=== PATIENT | female | born 1955 | race Caucasian/White ===

== ENCOUNTER 2018-06-25 13:59 | Emergency (ER) | payer MEDICARE, MEDICAID ==
[~2018-06-25] VITALS: Ht 171.4 cm; Wt 102.4 kg
[~2018-06-25 13:59] MED LIST: BACL10TA PO; DOCU-299 PO; FENT1PAT10 TP; FER325T PO; FLUO20CA39 PO; LACT10SO74 PO; LORA10TA7 PO; OMEP20CA10 PO; PALI1.5T PO; PROP20TA6 PO; RIFA550T PO; ROPI0.5T2 PO; ROPI1TAB4 PO; SOLI5TAB2 PO; SPIR50TA PO; TOP25T PO; TRAZ-218 PO
[2018-06-25] MEDS ORDERED: CefTRIAXone/D5W-Rocephin 1gm 50 ML IV ONE (15:10)
[2018-06-25 15:35] LABS: ALANINE AMINOTRANSFERASE 25 U/L (12-78); ALBUMIN 3.1 G/DL (3.4-5.0); ALBUMIN/GLOBULIN RATIO 1.2 (1.1-1.5); ALKALINE PHOSPHATASE 76 IU/L (46-116); ANION GAP 13 (8-16); ASPARTATE AMINO TRANSFERASE 32 U/L (10-37); BLOOD UREA NITROGEN 13 MG/DL (7-18); BUN/CREATININE RATIO 12.5 (6.6-38.0); CHLORIDE 107 MMOL/L (99-107); CREATININE 1.04 MG/DL (0.40-0.90); GLUCOSE 93 MG/DL (70-104); POTASSIUM 3.2 MMOL/L (3.5-5.1); SODIUM 143 MMOL/L (135-145); TOTAL CARBON DIOXIDE 22.6 MMOL/L (24-32); TOTAL PROTEIN 5.7 G/DL (6.4-8.2); eGFR 53 ML/MIN
[2018-06-25 15:37] LABS: BASOPHILS % (AUTO) 0.3 % (0-1); EOSINOPHILS # (AUTO) 0.2 X10'3 (0-0.9); EOSINOPHILS % (AUTO) 6.8 % (0-6); HEMOGLOBIN 10.1 g/dl (12.0-16.0); LYMPHOCYTES # (AUTO) 0.7 X10'3 (1.1-4.8); LYMPHOCYTES % (AUTO) 23.3 % (21-51); MEAN CORPUSCULAR HEMOGLOBIN 30.1 PG (27.0-31.0); MEAN CORPUSCULAR HGB CONC 33.6 % (33.0-36.5); MEAN CORPUSCULAR VOLUME 89.4 FL (78-98); MEAN PLATELET VOLUME 7.4 FL (7.4-10.4); MONOCYTES # (AUTO) 0.3 X10'3 (0-0.9); MONOCYTES % (AUTO) 8.3 % (2-12); NEUTROPHILS # (AUTO) 1.9 X10'3 (1.8-7.7); NEUTROPHILS % (AUTO) 61.3 % (42-75); RED BLOOD COUNT 3.36 X10'6 (4.20-5.60); RED CELL DISTRIBUTION WIDTH 15.7 % (11.5-14.5); WHITE BLOOD COUNT 3.2 X10'3 (4.5-11.0)
[2018-06-25] MEDS ORDERED: potassium Cl 20 mEq SR tablet PO STA (15:42)
[2018-06-25 15:45] LABS: PLATELET COUNT 43 X10'3 (140-440)
[2018-06-25] MEDS ORDERED: SULF1TAB49 PO (16:15)
[2018-06-25] MEDS ORDERED: CEPH500C5 PO (16:15)
[2018-06-25 16:31] VITALS: BP 110/53
== END 2018-06-25 16:35 | disposition home or self-care (01) ==
LOC: ER 14:00
DX: L03.115 Cellulitis of right lower limb (principal); E66.01 Morbid (severe) obesity due to excess calories; E11.9 Type 2 diabetes mellitus without complications; G89.29 Other chronic pain; Z90.49 Acquired absence of other specified parts of digestive tract; Z88.0 Allergy status to penicillin; Z79.899 Other long term (current) drug therapy
CPT/HCPCS: 36415; 73590; 80053; 85025; 93971; 96365; 99285; J0696

== ENCOUNTER 2021-08-12 09:11 | Inpatient (IN) | payer MEDICARE, MEDICAID ==
[~2021-08-12] VITALS: Ht 160 cm; Wt 56.7 kg
[~2021-08-12 09:11] MED LIST changes: -DOCU-299 PO; +DOCU-345 PO; -OMEP20CA10 PO; +OMEP20CA15 PO; -ROPI0.5T2 PO; +ROPI0.5T4 PO; -ROPI1TAB4 PO; +ROPI1TAB6 PO; -TRAZ-218 PO; +TRAZ-251 PO
--- NOTE | 2021-08-12 09:56 | NUR ---
spoke to nisa from [employer] office for pacemaker interrogation .they will call us with the report.
[2021-08-12] MEDS ORDERED: normal saline 1000ml 1,000 ML IV ONE (10:00)
[2021-08-12 10:03] LABS: BASOPHILS % (AUTO) 0.4 % (0-1); EOSINOPHILS # (AUTO) 0.2 X10'3 (0-0.9); EOSINOPHILS % (AUTO) 4.4 % (0-6); HEMATOCRIT 43.5 % (35.0-45.0); LYMPHOCYTES % (AUTO) 19.5 % (21-51); MEAN CORPUSCULAR HEMOGLOBIN 26.3 PG (27.0-31.0); MEAN CORPUSCULAR HGB CONC 32.2 g/dL (33.0-36.5); MEAN CORPUSCULAR VOLUME 81.6 FL (78-98); MEAN PLATELET VOLUME 6.8 FL (7.4-10.4); MONOCYTES # (AUTO) 0.3 X10'3 (0-0.9); NEUTROPHILS # (AUTO) 3.7 X10'3 (1.8-7.7); NEUTROPHILS % (AUTO) 69.7 % (42-75); PLATELET COUNT 71 X10'3 (140-440); RED BLOOD COUNT 5.33 X10'6 (4.20-5.60); WHITE BLOOD COUNT 5.3 X10'3 (4.5-11.0)
[2021-08-12 10:04] LABS: D-DIMER 2.27 MG/L FEU (0-0.50)
[2021-08-12] MEDS ORDERED: magnesium 2GM in 50ml NS 50 ML IV ONE (10:05)
[2021-08-12 10:07] LABS: ALANINE AMINOTRANSFERASE 30 U/L (12-78); ALBUMIN 2.8 G/DL (3.4-5.0); ALBUMIN/GLOBULIN RATIO 0.8 (1.1-1.5); ALKALINE PHOSPHATASE 131 IU/L (46-116); ANION GAP 14 (8-16); ASPARTATE AMINO TRANSFERASE 40 U/L (10-37); BILIRUBIN,TOTAL 1.2 MG/DL (0.1-1.0); BLOOD UREA NITROGEN 31 MG/DL (7-18); BUN/CREATININE RATIO 27.4 (6.6-38.0); CALCIUM 8.3 MG/DL (8.5-10.1); CHLORIDE 107 MMOL/L (99-107); CREATININE 1.13 MG/DL (0.40-0.90); GLUCOSE 150 MG/DL (70-104); SODIUM 143 MMOL/L (135-145); TOTAL CARBON DIOXIDE 22.2 MMOL/L (24-32); TOTAL PROTEIN 6.2 G/DL (6.4-8.2); eGFR 48 ML/MIN
[2021-08-12 10:15] LABS: MAGNESIUM 2.2 MG/DL (1.5-2.4)
[2021-08-12 10:25] LABS: ANISOCYTOSIS 2+; ELLIPTOCYTES FEW; HYPOCHROMASIA 1+; PLATELET ESTIMATE DECREASED; POLYCHROMASIA FEW; TEAR DROP CELLS 1+
[2021-08-12 10:27] LABS: PHOSPHORUS 3.5 MG/DL (2.3-4.5)
[2021-08-12] MEDS ORDERED: iohexol 350MG/ML 100ml bottle IV ONE (10:52)
--- NOTE | 2021-08-12 10:57 | NUR ---
to ct scan.
[2021-08-12] MEDS ORDERED: OMEP-50 PO (13:15)
[2021-08-12] MEDS ORDERED: BUPR2TAB11 SL (13:15)
[2021-08-12] MEDS ORDERED: FEXO-236 PO (13:15)
[2021-08-12] MEDS ORDERED: FURO40TA4 PO (13:15)
[2021-08-12] MEDS ORDERED: GUAN1TAB PO (13:15)
[2021-08-12] MEDS ORDERED: MIRT-87 PO (13:15)
[2021-08-12] MEDS ORDERED: NYST1000 PO (13:15)
[2021-08-12] MEDS ORDERED: BACL10TA2 PO (13:15)
[2021-08-12] MEDS ORDERED: SPIR25TA5 PO (13:15)
[2021-08-12] MEDS ORDERED: ALBU18HF2 IH (13:15)
[2021-08-12] MEDS ORDERED: MIRA25TA PO (13:15)
[2021-08-12] MEDS ORDERED: TOPI50TA24 PO (13:15)
[2021-08-12] MEDS ORDERED: ESTR42.510 VG (13:15)
[2021-08-12] MEDS ORDERED: LACT10SO3 PO (13:16)
[2021-08-12] MEDS ORDERED: albuterol 2.5 MG/3 ML nebule NEB PRN (14:55)
[2021-08-12] MEDS ORDERED: magnesium 4gm in 100ml NS 100 ML IV PRN (15:00)
[2021-08-12] MEDS ORDERED: morphine 2 MG/ML inj. syringe IV PRN ×2 (15:00)
[2021-08-12] MEDS ORDERED: potassium CL 10mEq/100ml bag 100 ML IV PRN (15:00)
[2021-08-12] MEDS ORDERED: magnesium hydroxide 30ml (MOM) UD suspension PO PRN (15:00)
[2021-08-12] MEDS ORDERED: HYDROcodone/acetaminophen 5mg/325mg tablet PO PRN (15:00)
[2021-08-12] MEDS ORDERED: acetaminophen 325mg tablet PO PRN ×2 (15:00)
[2021-08-12] MEDS ORDERED: magnesium Cl slow-release 64mg tablet PO PRN (15:00)
[2021-08-12] MEDS ORDERED: mag hydrox/Alum hydrox/simeth 30ml oral suspension PO PRN (15:00)
[2021-08-12] MEDS ORDERED: potassium Cl 20 mEq SR tablet PO PRN (15:00)
[2021-08-12] MEDS ORDERED: ondansetron/PF 4mg/2ml inj IV PRN (15:00)
[2021-08-12] MEDS ORDERED: magnesium 2GM in 50ml NS 50 ML IV PRN (15:00)
[2021-08-12] MEDS ORDERED: metoprolol tartrate 1mg/ml inj IV PRN (15:10)
[2021-08-12] MEDS ORDERED: regadenoson 0.4mg/5ml syringe IV ONE (15:10)
[2021-08-12] MEDS ORDERED: nitroGLYCERIN 0.4mg SUBLingual tab SL PRN (15:10)
[2021-08-12] MEDS ORDERED: aminophylline 250mg/10ml inj. IV PRN (15:10)
--- NOTE | 2021-08-12 15:24 | NUR ---
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
[2021-08-12] MEDS: furosemide 40mg/4ml inj IV SCH ×2 (15:42→19:39)
--- NOTE | 2021-08-12 18:12 | NUR ---
called the pharmacist to change the lexiscan med change to tomm as pt is going tomm for stress test.
[2021-08-12] MEDS: buprenorphine/naloxone 2-0.5mg sublingual tablet SL SCH (19:39)
[2021-08-12] MEDS: guanFACINE 1 mg tablet PO SCH (19:39)
[2021-08-12] MEDS: docusate sod 100mg capsule PO SCH (19:39)
[2021-08-12] MEDS: K and/or MAG REPLACEMENT MC SCH (20:24)
[2021-08-12] MEDS: rifaximin 550mg tablet PO SCH (20:36)
[2021-08-12] MEDS: lactulose 20gm/30ml cup PO SCH (21:22)
[2021-08-12 22:00] VITALS: BP 102/50
[2021-08-13] VITALS (10 sets, daily range): BP systolic 86–121; BP diastolic 45–67
[2021-08-13] MEDS: baclofen 10mg tablet PO SCH ×2 (00:58→20:53)
[2021-08-13] MEDS: ROPINIRole 1mg tablet PO SCH ×2 (00:58→20:51)
[2021-08-13] MEDS: mirtazapine 15mg tablet PO SCH ×2 (00:59→20:52)
[2021-08-13] MEDS ORDERED: LORazepam 2 mg/ml vial IV ONE (04:55)
--- NOTE | 2021-08-13 06:42 | NUR ---
Patient in room PCU 3012. I have received report from Olya DENNIS and had the opportunity to ask questions and assume patient care.
[2021-08-13 06:50] LABS: BASOPHILS % (AUTO) 0.2 % (0-1); EOSINOPHILS # (AUTO) 0.1 X10'3 (0-0.9); EOSINOPHILS % (AUTO) 4.6 % (0-6); HEMOGLOBIN 11.6 g/dl (12.0-16.0); LYMPHOCYTES # (AUTO) 0.7 X10'3 (1.1-4.8); MEAN CORPUSCULAR HEMOGLOBIN 26.5 PG (27.0-31.0); MEAN CORPUSCULAR VOLUME 80.1 FL (78-98); MONOCYTES # (AUTO) 0.2 X10'3 (0-0.9); MONOCYTES % (AUTO) 7.8 % (2-12); NEUTROPHILS # (AUTO) 1.2 X10'3 (1.8-7.7); NEUTROPHILS % (AUTO) 56.4 % (42-75); RED BLOOD COUNT 4.38 X10'6 (4.20-5.60); RED CELL DISTRIBUTION WIDTH 19.5 % (11.5-14.5); WHITE BLOOD COUNT 2.2 X10'3 (4.5-11.0)
[2021-08-13 06:54] LABS: ALBUMIN 2.4 G/DL (3.4-5.0); ANION GAP 9 (8-16); BLOOD UREA NITROGEN 24 MG/DL (7-18); BUN/CREATININE RATIO 24.7 (6.6-38.0); CHLORIDE 110 MMOL/L (99-107); CREATININE 0.97 MG/DL (0.40-0.90); GLUCOSE 84 MG/DL (70-104); POTASSIUM 3.2 MMOL/L (3.5-5.1); SODIUM 145 MMOL/L (135-145); TOTAL CARBON DIOXIDE 26.2 MMOL/L (24-32); eGFR 57 ML/MIN
[2021-08-13 07:35] LABS: PLATELET COUNT 45 X10'3 (140-440)
--- NOTE | 2021-08-13 07:50 | NUR ---
Critical Platelet MESSAGE: Dr. Velez Bed 12B Ivis Orquidea had a critical platelet level of 45 previously 71; [facility]
[2021-08-13] MEDS: enoxaparin 40mg/0.4ml syringe SUBCUT SCH (08:00)
[2021-08-13] MEDS: K and/or MAG REPLACEMENT MC SCH ×2 (08:00→20:00)
[2021-08-13] MEDS ORDERED: FLUoxetine 20mg capsule PO SCH (08:00)
[2021-08-13] MEDS ORDERED: baclofen 10mg tablet PO SCH (08:00)
[2021-08-13] MEDS ORDERED: ROPINIRole 1mg tablet PO SCH (08:00)
[2021-08-13] MEDS ORDERED: FLU VACC QS2021-22(6MOS UP)/PF 60 MCG/0.5 ML SYRINGE IM ONE (08:00)
[2021-08-13] MEDS ORDERED: regadenoson 0.4mg/5ml syringe IV ONE (08:00)
[2021-08-13] MEDS ORDERED: mirtazapine 15mg tablet PO SCH (08:00)
--- NOTE | 2021-08-13 08:00 | NUR ---
Lovenox hold Per Dr. Velez hold lovenox d/t low platelet level. [facility]
[2021-08-13] MEDS: furosemide 40mg/4ml inj IV SCH ×2 (08:47→20:52)
[2021-08-13] MEDS: pantoprazole 40mg Tablet.DR PO SCH (08:49)
[2021-08-13] MEDS: loratadine 10mg tablet PO SCH (08:49)
[2021-08-13] MEDS: lactulose 20gm/30ml cup PO SCH ×3 (08:51→20:51)
[2021-08-13] MEDS: FLUoxetine 20mg capsule PO SCH (08:51)
[2021-08-13] MEDS: spironolactone 25 MG tablet PO SCH (08:52)
[2021-08-13] MEDS: docusate sod 100mg capsule PO SCH ×2 (08:52→19:59)
[2021-08-13] MEDS: topiramate 25mg tablet PO SCH (08:53)
[2021-08-13] MEDS: buprenorphine/naloxone 2-0.5mg sublingual tablet SL SCH ×2 (08:54→20:52)
[2021-08-13] MEDS: nystatin 500,000 unit/5ML UD oral suspension PO SCH (09:01)
[2021-08-13] MEDS: guanFACINE 1 mg tablet PO SCH ×2 (09:01→20:52)
--- NOTE | 2021-08-13 09:51 | NUR ---
Pacemaker Rep Spoke with pacemaker novelties sales representative from [employer] per rep Chantal they will have a pacemaker novelties sales representative out to see her as soon as the can to interrogate her pacemaker [facility]
[2021-08-13 10:53] LABS: ANISOCYTOSIS 2+; PLATELET ESTIMATE DECREASED; TOTAL CELLS COUNTED 100
[2021-08-13 10:54] LABS: ELLIPTOCYTES FEW; SCHISTOCYTES FEW
--- NOTE | 2021-08-13 12:30 | NUR ---
Per. [employer] Gaye a pharmacy sales representative will be out tomorrow morning to interrogate pacemaker. [facility]
--- NOTE | 2021-08-13 12:39 | NUR ---
PAGER ID: [phone] MESSAGE: [email or web address] ON [email or web address], [facility] REPORT IS AVAILABLE FOR 3012B, THX
[2021-08-13] MEDS: rifaximin 550mg tablet PO SCH ×2 (12:42→21:06)
[2021-08-13] MEDS: mirabegron 25mg ER tablet PO SCH (12:43)
[2021-08-13] MEDS: potassium Cl 20 mEq SR tablet PO PRN ×3 (12:51→21:06)
[2021-08-13] MEDS: HYDROcodone/acetaminophen 10/325mg tab PO PRN ×2 (12:51→17:21)
--- NOTE | 2021-08-13 18:45 | NUR ---
Problems reprioritized. Patient report given Olya DENNIS, questions answered & plan of care reviewed with Olya DENNIS.
[2021-08-14 02:00] VITALS: BP 99/46
[2021-08-14 06:34] LABS: BASOPHILS % (AUTO) 0.4 % (0-1); EOSINOPHILS # (AUTO) 0.1 X10'3 (0-0.9); EOSINOPHILS % (AUTO) 4.7 % (0-6); HEMATOCRIT 37.5 % (35.0-45.0); HEMOGLOBIN 12.4 g/dl (12.0-16.0); LYMPHOCYTES # (AUTO) 0.7 X10'3 (1.1-4.8); LYMPHOCYTES % (AUTO) 32.5 % (21-51); MEAN CORPUSCULAR HEMOGLOBIN 26.5 PG (27.0-31.0); MEAN CORPUSCULAR VOLUME 80.3 FL (78-98); MONOCYTES # (AUTO) 0.2 X10'3 (0-0.9); MONOCYTES % (AUTO) 7.8 % (2-12); NEUTROPHILS # (AUTO) 1.2 X10'3 (1.8-7.7); NEUTROPHILS % (AUTO) 54.6 % (42-75); RED BLOOD COUNT 4.67 X10'6 (4.20-5.60); RED CELL DISTRIBUTION WIDTH 19.3 % (11.5-14.5); WHITE BLOOD COUNT 2.3 X10'3 (4.5-11.0)
[2021-08-14 06:51] LABS: ALBUMIN 2.4 G/DL (3.4-5.0); ANION GAP 6 (8-16); BLOOD UREA NITROGEN 24 MG/DL (7-18); BUN/CREATININE RATIO 21.6 (6.6-38.0); CALCIUM 8.1 MG/DL (8.5-10.1); CHLORIDE 111 MMOL/L (99-107); CREATININE 1.11 MG/DL (0.40-0.90); GLUCOSE 91 MG/DL (70-104); POTASSIUM 4.4 MMOL/L (3.5-5.1); SODIUM 144 MMOL/L (135-145); TOTAL CARBON DIOXIDE 26.6 MMOL/L (24-32); eGFR 49 ML/MIN
--- NOTE | 2021-08-14 07:09 | NUR ---
Patient in room PCU 3012. I have received report from Anila and had the opportunity to ask questions and assume patient care.
--- NOTE | 2021-08-14 07:10 | NUR ---
PAGER ID: [phone] MESSAGE: Orquidea [place] 3012B Has a platelet count of 46. Please advise Fara DENNIS ext [phone]
[2021-08-14 07:28] VITALS: BP 111/61
[2021-08-14] MEDS: nystatin 500,000 unit/5ML UD oral suspension PO SCH (08:00)
[2021-08-14] MEDS: rifaximin 550mg tablet PO SCH ×2 (08:00→20:07)
[2021-08-14] MEDS ORDERED: FLU VACC QS2021-22(6MOS UP)/PF 60 MCG/0.5 ML SYRINGE IM ONE (08:00)
[2021-08-14] MEDS: enoxaparin 40mg/0.4ml syringe SUBCUT SCH (08:00)
[2021-08-14] MEDS: K and/or MAG REPLACEMENT MC SCH ×2 (08:00→20:00)
[2021-08-14] MEDS: docusate sod 100mg capsule PO SCH ×2 (08:00→20:06)
[2021-08-14] MEDS: lactulose 20gm/30ml cup PO SCH ×4 (08:29→20:09)
[2021-08-14] MEDS: mirabegron 25mg ER tablet PO SCH (08:29)
[2021-08-14] MEDS: furosemide 40mg/4ml inj IV SCH ×2 (08:29→11:25)
[2021-08-14] MEDS: guanFACINE 1 mg tablet PO SCH ×2 (08:30→20:00)
[2021-08-14] MEDS: loratadine 10mg tablet PO SCH (08:30)
[2021-08-14] MEDS: topiramate 25mg tablet PO SCH (08:30)
[2021-08-14] MEDS: spironolactone 25 MG tablet PO SCH (08:31)
[2021-08-14] MEDS: buprenorphine/naloxone 2-0.5mg sublingual tablet SL SCH ×2 (08:31→20:05)
[2021-08-14] MEDS: FLUoxetine 20mg capsule PO SCH (08:31)
[2021-08-14] MEDS: pantoprazole 40mg Tablet.DR PO SCH (08:31)
[2021-08-14 08:56] LABS: ANISOCYTOSIS 2+; PLATELET ESTIMATE DECREASED; TOTAL CELLS COUNTED 100
[2021-08-14 12:31] LABS: ABG BASE EXCESS -0.7 mmol/L (-2.0-2.0); ABG HCO3 24.4 mmol/L (22.0-26.0); ABG OXYGEN SATURATION 98.3 % (94-97); ABG PCO2 (T) 41.8 mmHg (32.0-45.0); ABG PO2 (T) 130.5 mmHg (75.0-100.0); ALLEN'S TEST POSITIVE; FCOHb 0.7 % (0.0-3.9); FLOW 4 L/min; FMetHb 0.4 % (0.0-1.5); FO2Hb 97.2 % (94-97); TOTAL HEMOGLOBIN 12.9 G/dl (12.0-16.0)
[2021-08-14 12:58] LABS: PLATELET COUNT 46 X10'3 (140-440)
--- NOTE | 2021-08-14 15:17 | NUR ---
I called Jet the son to get consent on a lumbar puncture ordered by doctor and he absolutely refused to give consent he thinks she has been through enough and doesn't think it is necessary to continue to put his mother through countless tests. I answered all his question and he still refused to consent for the lumbar puncture. I informed Dr. Murguia. Addendum: 08/14/21 at 1524 by Fara Kidd RN This information was accidentally charted on the wrong patient
[2021-08-14] MEDS: methylPREDNISolone sod succ 125mg/2ml vial IV SCH ×2 (16:00→23:28)
[2021-08-14] MEDS ORDERED: methylPREDNISolone sod succ 125mg/2ml vial IV SCH (16:00)
[2021-08-14 18:00] VITALS: BP 97/36
--- NOTE | 2021-08-14 18:42 | NUR ---
Patient in room PCU 3012. I have received report from Fara DENNIS and had the opportunity to ask questions and assume patient care.
[2021-08-14] MEDS: ROPINIRole 1mg tablet PO SCH (20:06)
[2021-08-14] MEDS: baclofen 10mg tablet PO SCH (20:06)
[2021-08-14] MEDS: mirtazapine 15mg tablet PO SCH (20:07)
[2021-08-14 22:00] VITALS: BP 100/60
--- NOTE | 2021-08-14 22:22 | NUR ---
Held the Tenex medication because HR and SBP were below parameters for medication.
[2021-08-15 03:00] VITALS: BP 104/57
--- NOTE | 2021-08-15 06:15 | NUR ---
Problems reprioritized. Patient report given, questions answered & plan of care reviewed with Dinora DENNIS.
--- NOTE | 2021-08-15 06:30 | NUR ---
Patient in room PCU 3012. I have received report from Hoa Addison and had the opportunity to ask questions and assume patient care. Pt sitting up, HOB at 40 degrees, chest rising and falling evenly. no s/sx acute distress. safety measures in place.
[2021-08-15 06:58] LABS: BASOPHILS % (AUTO) 0.3 % (0-1); EOSINOPHILS % (AUTO) 0.7 % (0-6); HEMATOCRIT 39.6 % (35.0-45.0); HEMOGLOBIN 13.2 g/dl (12.0-16.0); LYMPHOCYTES # (AUTO) 0.4 X10'3 (1.1-4.8); LYMPHOCYTES % (AUTO) 27.8 % (21-51); MEAN CORPUSCULAR HEMOGLOBIN 26.6 PG (27.0-31.0); MEAN CORPUSCULAR HGB CONC 33.4 g/dL (33.0-36.5); MEAN CORPUSCULAR VOLUME 79.8 FL (78-98); MEAN PLATELET VOLUME 7.9 FL (7.4-10.4); MONOCYTES # (AUTO) 0.1 X10'3 (0-0.9); MONOCYTES % (AUTO) 4.1 % (2-12); NEUTROPHILS % (AUTO) 67.1 % (42-75); RED BLOOD COUNT 4.96 X10'6 (4.20-5.60); RED CELL DISTRIBUTION WIDTH 18.9 % (11.5-14.5); WHITE BLOOD COUNT 1.4 X10'3 (4.5-11.0)
[2021-08-15 07:20] LABS: PLATELET COUNT 42 X10'3 (140-440)
[2021-08-15 07:44] LABS: ALBUMIN 2.6 G/DL (3.4-5.0); ANION GAP 8 (8-16); BLOOD UREA NITROGEN 30 MG/DL (7-18); BUN/CREATININE RATIO 30.3 (6.6-38.0); CALCIUM 8.7 MG/DL (8.5-10.1); CHLORIDE 106 MMOL/L (99-107); CREATININE 0.99 MG/DL (0.40-0.90); GLUCOSE 150 MG/DL (70-104); MAGNESIUM 2.1 MG/DL (1.5-2.4); POTASSIUM 4.9 MMOL/L (3.5-5.1); SODIUM 140 MMOL/L (135-145); TOTAL CARBON DIOXIDE 25.6 MMOL/L (24-32); eGFR 56 ML/MIN
[2021-08-15] MEDS: docusate sod 100mg capsule PO SCH ×2 (08:00→19:09)
[2021-08-15] MEDS: enoxaparin 40mg/0.4ml syringe SUBCUT SCH (08:00)
[2021-08-15] MEDS: K and/or MAG REPLACEMENT MC SCH ×2 (08:00→19:26)
[2021-08-15] MEDS: FLUoxetine 20mg capsule PO SCH (08:58)
[2021-08-15] MEDS: pantoprazole 40mg Tablet.DR PO SCH (08:58)
[2021-08-15] MEDS: rifaximin 550mg tablet PO SCH ×2 (08:58→19:10)
[2021-08-15] MEDS: buprenorphine/naloxone 2-0.5mg sublingual tablet SL SCH ×2 (08:58→19:10)
[2021-08-15] MEDS: nystatin 500,000 unit/5ML UD oral suspension PO SCH (08:59)
[2021-08-15] MEDS: topiramate 25mg tablet PO SCH (08:59)
[2021-08-15] MEDS: mirabegron 25mg ER tablet PO SCH (08:59)
[2021-08-15] MEDS: guanFACINE 1 mg tablet PO SCH ×2 (08:59→19:10)
[2021-08-15] MEDS: spironolactone 25 MG tablet PO SCH (08:59)
[2021-08-15] MEDS: loratadine 10mg tablet PO SCH (08:59)
[2021-08-15] MEDS: furosemide 40mg/4ml inj IV SCH (09:00)
[2021-08-15] MEDS: lactulose 20gm/30ml cup PO SCH ×3 (09:00→19:21)
[2021-08-15] MEDS: methylPREDNISolone sod succ 125mg/2ml vial IV SCH ×3 (09:00→23:24)
[2021-08-15 10:27] LABS: TOTAL CELLS COUNTED 100
[2021-08-15 10:29] LABS: ANISOCYTOSIS 2+; MICROCYTOSIS 1+; PLATELET ESTIMATE DECREASED
--- NOTE | 2021-08-15 11:01 | NUR ---
Dr. Landrum to the floor. discussed platelets, WBC, etc. new order for neutropenic precautions.
--- NOTE | 2021-08-15 11:03 | NUR ---
called professor of philosophy Yordy to ensure neutropenic precautions added to diet.
[2021-08-15 18:00] VITALS: BP 104/61
--- NOTE | 2021-08-15 19:19 | NUR ---
Problems reprioritized. Patient report given, questions answered & plan of care reviewed with Abimbola DENNIS. pt sitting up in bed eating dinner. no s/sx acute distress
[2021-08-15] MEDS: ROPINIRole 1mg tablet PO SCH (19:20)
[2021-08-15] MEDS: mirtazapine 15mg tablet PO SCH (19:21)
[2021-08-15] MEDS: baclofen 10mg tablet PO SCH ×2 (19:21→21:00)
[2021-08-15 22:00] VITALS: BP 114/59
[2021-08-16 02:00] VITALS: BP 119/66
--- NOTE | 2021-08-16 06:39 | NUR ---
Patient in room PCU 3010. I have received report from Abimbola DENNIS and had the opportunity to ask questions and assume patient care. Pt semi fowlers in bed, chest rising and falling evenly. neutropenic precautions in place. safety measures in place. no s/sx acute distress.
--- NOTE | 2021-08-16 06:42 | NUR ---
Patient report given, questions answered & plan of care reviewed with oncoming RN. Sukumar
[2021-08-16 06:59] LABS: BASOPHILS % (AUTO) 0.1 % (0-1); EOSINOPHILS % (AUTO) 0.1 % (0-6); HEMATOCRIT 38.1 % (35.0-45.0); HEMOGLOBIN 12.6 g/dl (12.0-16.0); LYMPHOCYTES # (AUTO) 0.4 X10'3 (1.1-4.8); MEAN CORPUSCULAR HEMOGLOBIN 26.6 PG (27.0-31.0); MEAN CORPUSCULAR HGB CONC 33.1 g/dL (33.0-36.5); MEAN CORPUSCULAR VOLUME 80.6 FL (78-98); MEAN PLATELET VOLUME 7.5 FL (7.4-10.4); MONOCYTES # (AUTO) 0.1 X10'3 (0-0.9); MONOCYTES % (AUTO) 3.3 % (2-12); NEUTROPHILS # (AUTO) 2.6 X10'3 (1.8-7.7); NEUTROPHILS % (AUTO) 84.5 % (42-75); RED BLOOD COUNT 4.72 X10'6 (4.20-5.60); RED CELL DISTRIBUTION WIDTH 18.8 % (11.5-14.5); WHITE BLOOD COUNT 3.1 X10'3 (4.5-11.0)
[2021-08-16 07:07] LABS: PLATELET COUNT 40 X10'3 (140-440)
--- NOTE | 2021-08-16 07:18 | NUR ---
Called [employer] to inquire why no one has come out to interrogate the pacemaker. Per Mercedes at [employer], she will let the team know this is the 3rd time calling, that they need to come out delores. [employer]: .
--- NOTE | 2021-08-16 07:19 | NUR ---
Platelet 40. Dr. vasquez paged. PAGER: [phone] "RE: Orquidea Langston: 3010: platelet 40 (down from 42). holding [employer] [facility] #[id number]"
[2021-08-16 07:24] VITALS: BP 103/63
[2021-08-16 07:25] LABS: ALBUMIN 2.7 G/DL (3.4-5.0); ANION GAP 9 (8-16); BLOOD UREA NITROGEN 40 MG/DL (7-18); BUN/CREATININE RATIO 37.7 (6.6-38.0); CALCIUM 8.7 MG/DL (8.5-10.1); CHLORIDE 105 MMOL/L (99-107); CREATININE 1.06 MG/DL (0.40-0.90); GLUCOSE 156 MG/DL (70-104); MAGNESIUM 2.4 MG/DL (1.5-2.4); POTASSIUM 4.1 MMOL/L (3.5-5.1); SODIUM 140 MMOL/L (135-145); TOTAL CARBON DIOXIDE 26.1 MMOL/L (24-32); eGFR 52 ML/MIN
[2021-08-16] MEDS: K and/or MAG REPLACEMENT MC SCH ×2 (08:00→19:24)
[2021-08-16] MEDS: furosemide 40mg/4ml inj IV SCH (09:00)
[2021-08-16] MEDS: methylPREDNISolone sod succ 125mg/2ml vial IV SCH ×2 (09:00→16:30)
[2021-08-16] MEDS: nystatin 500,000 unit/5ML UD oral suspension PO SCH (09:01)
[2021-08-16] MEDS: spironolactone 25 MG tablet PO SCH (09:01)
[2021-08-16] MEDS: guanFACINE 1 mg tablet PO SCH ×2 (09:01→19:22)
[2021-08-16] MEDS: FLUoxetine 20mg capsule PO SCH (09:01)
[2021-08-16] MEDS: lactulose 20gm/30ml cup PO SCH ×3 (09:01→19:22)
[2021-08-16] MEDS: mirabegron 25mg ER tablet PO SCH (09:01)
[2021-08-16] MEDS: pantoprazole 40mg Tablet.DR PO SCH (09:01)
[2021-08-16] MEDS: rifaximin 550mg tablet PO SCH ×2 (09:02→19:21)
[2021-08-16] MEDS: buprenorphine/naloxone 2-0.5mg sublingual tablet SL SCH ×2 (09:02→19:23)
[2021-08-16] MEDS: loratadine 10mg tablet PO SCH (09:02)
--- NOTE | 2021-08-16 09:50 | NUR ---
Initial: Pt admit for worsening SOB with possible acute on chronic cor pulmonale. Per MD note pt with leukopenia and thrombocytopenia. Pt on a neutropenic heart healthy diet and initially with 50% PO intake however up to 75% PO intake at two most recent meals meeting estimated nutrient needs. LBM 08/15. Pt with h/o ESLD and receiving Lactulose TID, pt likely to experience some diarrhea though no GI symptoms at this time per EMR. No nutrition intervention implemented at this time. Will continue to follow. Recommendations: 1) Continue neutropenic heart healthy diet 2) Routine bowel care 3) Daily scaled weights per EMR Addendum: 08/16/21 at [address] Amended: Links added.
[2021-08-16 11:00] VITALS: BP 108/55
[2021-08-16] MEDS ORDERED: HYDROcodone/acetaminophen 5mg/325mg tablet PO PRN (11:25)
--- NOTE | 2021-08-16 11:40 | NUR ---
O2 Sat at rest on room air: 90% If O2 Sat did not drop below 89% on room air,ambulate patient on room air. O2 Sat while ambulating on room air: 85% Recovery O2 Sat: 89% while ambulating on 3 LPM after 3 mins. after 5 mins of sitting at 3LPM, SPO2 91%. No further documentation is necessary.
[2021-08-16] MEDS: HYDROcodone/acetaminophen 5mg/325mg tablet PO PRN ×2 (11:49→20:32)
--- NOTE | 2021-08-16 14:12 | NUR ---
Called [email or web address] AGAIN. spoke with health policy manager Baudilio Graham. Per baudilio he will be calling regional rep now and will give me a call back delores with an update on when the rep will be here.
[2021-08-16 15:00] VITALS: BP 100/49
[2021-08-16 17:49] LABS: ATYPICAL PANCA <1:20 titer (Neg:<1:20); CYTOPLASMIC (C-ANCA) <1:20 titer (Neg:<1:20); PERINUCLEAR (P-ANCA) <1:20 titer (Neg:<1:20)
[2021-08-16 18:00] VITALS: BP 122/70
--- NOTE | 2021-08-16 18:32 | NUR ---
Received report from Sukumar Handley patient in bed with no acute distress family by bedside
--- NOTE | 2021-08-16 18:45 | NUR ---
Problems reprioritized. Patient report given, questions answered & plan of care reviewed with Abimbola DENNIS. pt sitting up in bed working in dinner. no s/sx acute dsitress
[2021-08-16] MEDS: baclofen 10mg tablet PO SCH (19:22)
[2021-08-16] MEDS: ROPINIRole 1mg tablet PO SCH (19:23)
[2021-08-16 22:00] VITALS: BP 126/60
[2021-08-17] MEDS: methylPREDNISolone sod succ 125mg/2ml vial IV SCH ×3 (00:45→16:00)
[2021-08-17 02:00] VITALS: BP 130/70
[2021-08-17] MEDS: HYDROcodone/acetaminophen 5mg/325mg tablet PO PRN ×2 (06:17→16:22)
[2021-08-17 06:43] LABS: BASOPHILS % (AUTO) 0.1 % (0-1); EOSINOPHILS % (AUTO) 0 % (0-6); HEMATOCRIT 39.2 % (35.0-45.0); LYMPHOCYTES # (AUTO) 0.3 X10'3 (1.1-4.8); LYMPHOCYTES % (AUTO) 13.6 % (21-51); MEAN CORPUSCULAR HEMOGLOBIN 26.5 PG (27.0-31.0); MEAN CORPUSCULAR HGB CONC 33.1 g/dL (33.0-36.5); MEAN CORPUSCULAR VOLUME 80.1 FL (78-98); MEAN PLATELET VOLUME 8.2 FL (7.4-10.4); NEUTROPHILS # (AUTO) 2.1 X10'3 (1.8-7.7); NEUTROPHILS % (AUTO) 84.3 % (42-75); RED CELL DISTRIBUTION WIDTH 18.5 % (11.5-14.5); WHITE BLOOD COUNT 2.5 X10'3 (4.5-11.0)
[2021-08-17 06:47] LABS: ALBUMIN 2.8 G/DL (3.4-5.0); ANION GAP 7 (8-16); BLOOD UREA NITROGEN 41 MG/DL (7-18); BUN/CREATININE RATIO 44.1 (6.6-38.0); CALCIUM 8.9 MG/DL (8.5-10.1); CHLORIDE 107 MMOL/L (99-107); CREATININE 0.93 MG/DL (0.40-0.90); GLUCOSE 156 MG/DL (70-104); POTASSIUM 4.4 MMOL/L (3.5-5.1); SODIUM 141 MMOL/L (135-145); TOTAL CARBON DIOXIDE 27.5 MMOL/L (24-32); eGFR 60 ML/MIN
--- NOTE | 2021-08-17 06:50 | NUR ---
Patient in room PCU 3010. I have received report from Abimbola DENNIS and had the opportunity to ask questions and assume patient care. Pt semi fowlers in bed, with 02/nc/2lpm, chest rising and falling evenly. safety measures in place. neutropenic precautions maintained. no s/sx acute distress
[2021-08-17 07:16] LABS: PLATELET COUNT 37 X10'3 (140-440)
--- NOTE | 2021-08-17 07:19 | NUR ---
critical platelet: 37. (down from 40). Dr. Landrum paged. "PAGER ID: [phone] MESSAGE: RE: Orquidea Langston: 3010: critical platelet: 37 (down from 40). [facility] #[id number]"
[2021-08-17 07:23] VITALS: BP 116/63
[2021-08-17] MEDS: K and/or MAG REPLACEMENT MC SCH (08:00)
[2021-08-17] MEDS ORDERED: TBO-filgrastim 300 MCG/0.5 ML inj. SQ SCH (08:00)
[2021-08-17 08:02] LABS: ANISOCYTOSIS 2+; PLATELET ESTIMATE DECREASED; TOTAL CELLS COUNTED 100
[2021-08-17 08:03] LABS: ELLIPTOCYTES 1+
[2021-08-17] MEDS: guanFACINE 1 mg tablet PO SCH (08:03)
[2021-08-17] MEDS: mirabegron 25mg ER tablet PO SCH (08:03)
[2021-08-17] MEDS: lactulose 20gm/30ml cup PO SCH ×2 (08:03→13:00)
[2021-08-17] MEDS: FLUoxetine 20mg capsule PO SCH (08:03)
[2021-08-17] MEDS: furosemide 40mg/4ml inj IV SCH (08:03)
[2021-08-17] MEDS: nystatin 500,000 unit/5ML UD oral suspension PO SCH (08:03)
[2021-08-17 08:04] LABS: SCHISTOCYTES FEW
[2021-08-17] MEDS: pantoprazole 40mg Tablet.DR PO SCH (08:04)
[2021-08-17] MEDS: rifaximin 550mg tablet PO SCH (08:04)
[2021-08-17] MEDS: buprenorphine/naloxone 2-0.5mg sublingual tablet SL SCH (08:04)
[2021-08-17] MEDS: loratadine 10mg tablet PO SCH (08:04)
[2021-08-17] MEDS: spironolactone 25 MG tablet PO SCH (08:04)
[2021-08-17 11:00] VITALS: BP 118/68
[2021-08-17] MEDS ORDERED: baclofen 10mg tablet PO SCH (14:23)
[2021-08-17] MEDS ORDERED: PRED10TA23 PO (14:55)
[2021-08-17 15:00] VITALS: BP 125/65
--- NOTE | 2021-08-17 17:25 | NUR ---
pt stable for discharge per MD orders. all discharge instructions explained/all questions answered to pt and her son Michael. New Rx called into [facility]. Follow up appointment with be made by pt with her PCP, and telephone number and address for Dr. Carvalho given. hand written rx for CBC/CMP given. PIC discontinued. cannula intact. library monitor discontinued. belongings collected and sent with pt. pt wheeled to [employer], without s/sx acute distress, hooked to portable oxygen where she loaded into her son's private vehicle. and left.
[2021-08-18] MEDS ORDERED: TBO-filgrastim 300 MCG/0.5 ML inj. SQ SCH (08:00)
== END 2021-08-17 16:40 | disposition home or self-care (01) | DRG 189 ==
LOC: ER 09:12 → ED HOLD 15:01 → PCU 3S 21:51
PROVIDERS: ADMIT Internal Medicine; ATTEND Internal Medicine
PROC: B32T1ZZ Computerized Tomography (CT Scan) of Left Pulmonary Artery using Low Osmolar Contrast (ICD-10-PCS; 2021-08-12)
PROC: B3201ZZ Computerized Tomography (CT Scan) of Thoracic Aorta using Low Osmolar Contrast (ICD-10-PCS; 2021-08-12)
PROC: B32S1ZZ Computerized Tomography (CT Scan) of Right Pulmonary Artery using Low Osmolar Contrast (ICD-10-PCS; 2021-08-12)
PROC: 3E02340 Introduction of Influenza Vaccine into Muscle, Percutaneous Approach (ICD-10-PCS; principal; 2021-08-13)
PROC: 4A02XM4 Measurement of Cardiac Total Activity, External Approach (ICD-10-PCS; 2021-08-13)
PROC: 3E073KZ Introduction of Other Diagnostic Substance into Coronary Artery, Percutaneous Approach (ICD-10-PCS; 2021-08-13)
DX: J96.01 Acute respiratory failure with hypoxia (principal); N18.6 End stage renal disease; I13.2 Hypertensive heart and chronic kidney disease with heart failure and with stage 5 chronic kidney disease, or end stage renal disease; J84.9 Interstitial pulmonary disease, unspecified; R18.8 Other ascites; K72.10 Chronic hepatic failure without coma; D72.819 Decreased white blood cell count, unspecified; E11.22 Type 2 diabetes mellitus with diabetic chronic kidney disease; F31.9 Bipolar disorder, unspecified; G47.00 Insomnia, unspecified; I20.9 Angina pectoris, unspecified; I27.20 Pulmonary hypertension, unspecified; G89.4 Chronic pain syndrome; Z20.822 Contact with and (suspected) exposure to COVID-19; B19.20 Unspecified viral hepatitis C without hepatic coma; I49.5 Sick sinus syndrome; D69.59 Other secondary thrombocytopenia; T43.025A Adverse effect of tetracyclic antidepressants, initial encounter; M54.9 Dorsalgia, unspecified; R14.0 Abdominal distension (gaseous); I50.810 Right heart failure, unspecified; K74.60 Unspecified cirrhosis of liver; K76.0 Fatty (change of) liver, not elsewhere classified; Z82.49 Family history of ischemic heart disease and other diseases of the circulatory system; Z87.891 Personal history of nicotine dependence; Z90.49 Acquired absence of other specified parts of digestive tract; Z95.0 Presence of cardiac pacemaker; Z23 Encounter for immunization; Z86.16 Personal history of COVID-19; Z88.0 Allergy status to penicillin; Z79.899 Other long term (current) drug therapy
CPT/HCPCS: 36415; 36600; 71045; 71275; 78452; 80048; 80053; 82803; 82948; 83735; 83880; 84100; 84443; 84484; 85007; 85008; 85018; 85025; 85379; 85651; 86038; 86256; 87081; 87635; 93005; 93017; 93306; 94760; 96365; 96366; 97110; 97116; 99291; A9500; C9803; G0378; J1442; J1940; J2060; J2405; J2785; J2930; J3475; J7030; Q9967